=== PATIENT | female | born 1980 | race Caucasian/White ===

== ENCOUNTER 2019-06-07 07:02 | Emergency (ER) | payer OTHER ==
[~2019-06-07] VITALS: Ht 160 cm; Wt 77.1 kg
--- NOTE | 2019-06-07 07:04 | NUR ---
PT BIBA S/P MECHANICAL FALL TODAY. PT WAS WATERING STAIRS AND WAS WALKING DOWN THE STEPS AND FELL "ABOUT" 6 STEPS DOWN. PT AWAKE AND ALERT. ANSWERING QUESTIONS APPROPRIATELY. [facility] 15. PER PT "I FELL HIT MY TAIL BONE AND THEN HIT MY HEAD" PT DENIED LOC. DENIES N/V. PT PAIN LEVEL 10/10 TO NECK, UPPER BACK, TAIL BONE, L. HIP, AND R. SHOULDER PAIN. NKA. MED HX: SPINAL BIFADA, SPINAL STENOSIS, AND BILATERAL SCIATICA. SAFETY MEASURES IN PLACE. WAITING FOR ERMD TO EVALUATE PT.
[2019-06-07 07:09] VITALS: BP 123/85
[2019-06-07] MEDS ORDERED: MORPHINE SULFATE 4 MG/ML SYR IM ONE (07:25)
[2019-06-07] MEDS ORDERED: ONDANSETRON 4 MG ODT PO ONE (07:25)
--- NOTE | 2019-06-07 08:14 | NUR ---
REMAINS AT BEDSIDE---PT RESTING PRONE WITH OU CLOSED , NO GRIMACE NO MOAN WILL CONTINUE TO OBSERVE FOR PAIN CONTROL---AWAITS DISPO
[2019-06-07 08:59] VITALS: BP 132/76
--- NOTE | 2019-06-07 08:59 | NUR ---
Patient discharged with v/s stable. Written and verbal after care instructions given and explained. Patient alert, oriented and verbalized understanding of instructions. Ambulatory with steady gait. All questions addressed prior to discharge. ID band removed. Patient advised to follow up with PMD. Rx of NORCO given. Patient educated on indication of medication including possible reaction and side effects. Opportunity to ask questions provided and answered. AMBULATED OUT OF THE ER WITH STEADY GAIT WITH
== END 2019-06-07 08:59 | disposition home or self-care (01) ==
LOC: MED 07:02
DX: S30.0XXA Contusion of lower back and pelvis, initial encounter (principal); S70.01XA Contusion of right hip, initial encounter; S09.90XA Unspecified injury of head, initial encounter; F17.200 Nicotine dependence, unspecified, uncomplicated; Z98.890 Other specified postprocedural states; W18.30XA Fall on same level, unspecified, initial encounter; Y93.89 Activity, other specified; Y92.89 Other specified places as the place of occurrence of the external cause; Y99.8 Other external cause status
CPT/HCPCS: 72100; 73502; 96372; 99283; J2270; Q0162